=== PATIENT | male | born 1960 | race Hispanic/Latino ===

== ENCOUNTER 2018-08-13 21:26 | Inpatient (IN) | payer MEDICARE ==
[~2018-08-13 21:26] MED LIST: ISOVUE-370 76%-LOCM 1 ML ONE
[2018-08-13 21:59] LABS: #Basophils 0.2 thou/uL (0.0-0.2); #Eosinphils 0.1 thou/uL (0.0-0.7); #Lymphocytes 2.2 thou/uL (1.20-3.40); #Monocytes 0.6 thou/uL (0.11-0.59); #Neutrophils 4.7 thou/uL (1.40-6.50); %Eosinophils 1.9 % (0.0-10.0); %Lymphocytes 27.9 % (21.0-51.0); %Monocytes 7.6 % (0.0-10.0); %Neutrophils 60.6 % (42.0-75.0); Hemoglobin 15.7 g/dL (14.0-18.0); Mean Corpuscular HGB CONC 33.4 g/dL (32.0-36.0); Mean Corpuscular Hemoglobin 32.7 pg (27.0-31.0); Mean Corpuscular Volume 97.8 fL (78.0-98.0); Mean Platelet Volume 7.2 fL (7.4-10.4); Platelet Count 211 thou/uL (130-400); RBC Distribution Width 12.2 % (11.5-14.5); Red Blood Cell (RBC) Count 4.79 mill/uL (4.70-6.10); White Blood Cell (WBC) Count 7.8 thou/uL (4.8-10.8)
[2018-08-13 22:20] LABS: ALT (SGPT) 39 U/L (8-55); AST (SGOT) 31 U/L (5-34); Albumin 3.9 g/dL (3.5-5.0); Alkaline Phosphatase 75 U/L (40-150); Anion Gap 15 mmol/L (10-20); BUN (Urea Nitrogen) 15 mg/dL (8.4-25.7); Calc. Creatinine Clearance 0 mL/min (70-130); Calcium 9.8 mg/dL (7.8-10.44); Carbon Dioxide 25 mmol/L (22-29); Chloride 99 mmol/L (98-107); Estimated GFR-MDRD 77; Glucose 133 mg/dL (70-105); Potassium 3.9 mmol/L (3.5-5.1); Protein, Total 6.9 g/dL (6.0-8.3); Sodium 135 mmol/L (136-145)
--- NOTE | 2018-08-13 22:26 | RAD ---
Portable frontal chest radiograph: 08/13/2018 COMPARISON: 01/25/2011 HISTORY: Shortness of breath FINDINGS: There is prominence of the cardiac silhouette, which may signify magnification and/or cardi ac enlargement. No pneumothorax, pleural fluid, focal consolidation, or alveolar edema. IMPRESSION: Prominent cardiac silhouette with no focal consolidation or alveolar edema.
[2018-08-13 22:37] LABS: Troponin I Less than 0.010 ng/mL (< 0.028)
[2018-08-13] MEDS ORDERED: Lorazepam 2 MG/ML VIAL ONE (23:05)
--- NOTE | 2018-08-13 23:05 | CT ---
CT angiogram chest: 08/13/2018 COMPARISON: None HISTORY: Short of breath FINDINGS: Chest CT with IV contrast using CT angiogram protocol with coronal and sagittal 3-D reforma tted imaging obtained. No lymphadenopathy is noted. No pleural, pericardial, or mediastinal fluid. Evaluation for pulmonary embolism is suboptimal secondary to poor timing of the contrast bolus. Distal pulmonary emboli cannot be excluded. No evidence for a central pulmonary arterial embolism is seen. The lung parenchyma within the inferior posterior bilateral lower lobes is not fully imaged. The imag ed lung parenchyma demonstrates no acute findings. No acute osseous abnormality is seen. IMPRESSION: No evidence for a central pulmonary arterial embolism.
[2018-08-13 23:51] LABS: Acetaminophen Less than 6.0 mcg/mL (10.0-30.0); Alcohol Less than 10 mg/dL (Less than 10); CK (CPK) 388 U/L (30-200); Salicylate Less than 8.0 mg/dL (15.0-30.0)
[2018-08-14 00:25] LABS: Amphetamine Not Detected (NotDetected); Barbiturates Screen Not Detected (NotDetected); Benzodiazepine Screen Not Detected (NotDetected); Cocaine Metabolite Screen Not Detected (NotDetected); Medtox Control Line Valid? VALID (VALID); Medtox Reader # READER 1; Methadone Not Detected (NotDetected); Methamphetamine Not Detected (NotDetected); Opiate Screen Not Detected (NotDetected); Oxycodone Screen Not Detected (NotDetected); Phencyclidine (PCP) Not Detected (NotDetected); THC/Cannabinoid Screen Not Detected (NotDetected); Tricyclic Screen Not Detected (NotDetected)
[2018-08-14] MEDS ORDERED: methylPREDNISolone Sod Succ/PF 125 MG/2 ML VIAL ONE (01:25)
[2018-08-14] MEDS ORDERED: Albuterol Sulfate 2.5 mg/3 ml Neb ONE (01:36)
[2018-08-14] MEDS ORDERED: Acetaminophen 325 MG TAB PO PRN (02:40)
[2018-08-14] MEDS ORDERED: Ondansetron ODT 4 MG TAB SL PRN (02:40)
[2018-08-14] MEDS ORDERED: Ondansetron PF 4 MG/2 ML Vial IVP PRN (02:40)
[2018-08-14 06:07] VITALS: BMI 53.8
[2018-08-14] MEDS ORDERED: Dextrose 5% in Water 1,000 ML IV PRN (13:40)
[2018-08-14] MEDS ORDERED: Dextrose 50% Abboject 50 ML SYRINGE IVP PRN (13:40)
[2018-08-14] MEDS ORDERED: PROVENTIL INHALER 6.7 G (200 INHALATIONS) INH PRN (13:43)
[2018-08-14] MEDS ORDERED: hydrOXYzine 25 MG TAB PO PRN (13:48)
[2018-08-14] MEDS ORDERED: Guaifenesin DM 100-10/5 ML UDCUP PO PRN (13:52)
[2018-08-14] MEDS ORDERED: traMADol HCl 50 MG TAB PO PRN (13:56)
[2018-08-14] MEDS ORDERED: Nitroglycerin 0.4 MG TAB (25 Tab Bottle) SL SCH (14:00)
[2018-08-14] MEDS ORDERED: Azithromycin 500 MG in Sodium Chloride 0.9% 250 ML 250 ML IVPB SCH (14:00)
[2018-08-14] MEDS ORDERED: Metoprolol Tartrate 50 MG TAB PO SCH (14:15)
[2018-08-14] MEDS ORDERED: Losartan 25 MG TAB PO SCH (14:15)
[2018-08-14] MEDS: ALPRAZolam 0.5 MG TAB PO PRN (14:19)
[2018-08-14] MEDS ORDERED: Bacteriostatic Water 30 ML VIAL FS PRN ×2 (14:21→14:30)
[2018-08-14] MEDS ORDERED: cefTRIAXone\\ROCEPHIN 1 GM in Sodium Chloride 0.9% 100 ML IVPB SCH (15:00)
--- NOTE | 2018-08-14 15:56 | HP ---
CHIEF COMPLAINT: Shortness of breath for the last 3-4 days. HISTORY OF PRESENT ILLNESS: He is a 57-year-old man with history of hypertension, diabetes, obstructive sleep apnea, has been having some shortness of breath over the last 3 days. He has been to ED x2 for the past 3 days, was sent home. At home, he could not breathe with cough and productive sputum and with chest heaviness, he decided to come to the ER. When came to ER, he was hypoxic and was given nebulized treatment and put on oxygen 3 L per nasal cannula. He improved, but continued to have some shortness of breath. 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 MEDICATIONS: He takes at home: 1. Cozaar 50 mg daily. 2. Metoprolol 25 mg daily. 3. Tramadol 50 mg q.6 hourly. 4. Glyburide 5 mg b.i.d. PAST MEDICAL HISTORY: Sleep apnea, kidney stones, diabetes, hypertension. PAST SURGICAL HISTORY: Left leg surgery, lithotripsy. SOCIAL HISTORY: He drinks socially every week. Denies alcohol or drug use. No smoking history. PSYCHIATRIC HISTORY: No previous psychiatric history. ALLERGIES: NO KNOWN DRUG ALLERGY. WHEN HE CAME TO ER, HIS VITAL SIGNS WERE BLOOD PRESSURE 186/123, PULSE 90, RESPIRATIONS 16, TEMPERATURE 99.4. IN THE ER, HE WAS GIVEN 3 NEBULIZED TREATMENTS, IV STEROIDS. CTA CHEST DONE, CAME BACK NEGATIVE, NO PE. FAMILY HISTORY: Reviewed and not pertinent to current illness. REVIEW OF SYSTEMS: GENERAL: Confusion. Denies any malaise. No fever. No chills. EYES: Denies any eye pain. No discharge. ENT: Denies any dysphagia, throat swelling or epistaxis. CARDIOVASCULAR: Denies any chest pain. Does have some chest tightness. Does have shortness of breath. No pain. No orthopnea. RESPIRATORY: He has some cough and wheezing. GI: Denies any nausea, vomiting, constipation, or diarrhea. GENITOURINARY: Denies any dysuria or any discharge from the penis. MUSCULOSKELETAL: Denies any joint pain. SKIN: No rash. NEUROLOGICAL: Denies any dizziness or headache. ENDOCRINE: Denies any heat intolerance. PHYSICAL EXAMINATION: GENERAL: This is an elderly man, morbidly obese, not in distress. VITAL SIGNS: Pulse 88, blood pressure 129/83, respirations 18, temperature 98.7, and on 3 L oxygen nasal cannula. HEENT: Head is atraumatic, normocephalic. Pupils are round, reactive. Ears, nose, and throat normal. Tongue, mucosa moist. NECK: Supple. No JVD. No thyromegaly. CHEST: Has diminished breath sounds at bases. Bilateral expiratory wheezing noted. No coarse crackles. No rhonchi. CVS: S1, S2 audible. No S3, S4. No murmur. ABDOMEN: Soft, distended. Bowel sounds audible. No organomegaly. No guarding. No rigidity. EXTREMITIES: No pedal edema. No cyanosis, no clubbing. 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 No focal deficit. SKIN: Normal turgor. Warm and dry. No rash. PSYCHIATRIC: Normal behavior. Affect, normal. LABORATORY DATA: Lab shows WBC 7.8, hemoglobin 15.7, hematocrit 47, platelets 211. Sodium 135, potassium 3.9, chloride 99, bicarbonate 25, glucose 133. AST 31, ALT 39, alkaline phosphatase 75, creatine kinase 388. Troponin less than 0.012. Serum total protein 6.9, albumin 3.9. Urine toxicology came back negative. IMAGING STUDIES: CTA chest came back negative, no PE. ASSESSMENT/PLAN: A 57-year-old man who is morbidly obese with history of sleep apnea, presented with shortness of breath for a 3-day duration with obstructive sleep apnea. 1. Hypoxia, possible chronic obstructive pulmonary disease versus asthma. IV Solu-Medrol 80 mg oxygen nebulizer, IV Rocephin, Zithromax empirically. 2. Obstructive sleep apnea. We will try CPAP and BiPAP at night, and we will follow him closely. Pulmonology will be consulted. 3. Deep vein thrombosis prophylaxis will be Lovenox. Job ID: [id number]
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
[2018-08-14] MEDS: Potassium Chloride 10 MEQ TAB PO SCH (17:15)
[2018-08-14] MEDS ORDERED: methylPREDNISolone Sod Succ/PF 125 MG/2 ML VIAL IVP SCH (18:00)
[2018-08-14] MEDS: Mometasone/Formoterol 120 PUFF INHALER INH SCH (18:52)
[2018-08-14] MEDS: Famotidine 20 MG TAB PO SCH (20:29)
[2018-08-14] MEDS: Furosemide 40 MG TAB PO SCH (20:29)
[2018-08-14] MEDS ORDERED: methylPREDNISolone Sod Succ 40 MG VIAL IVP SCH (21:00)
[2018-08-14] MEDS: HumaLOG 300 UNITS/3 ML VIAL SC PRN (21:37)
[2018-08-15] MEDS ORDERED: Cepastat Lozenges 1 LOZ PO PRN (00:22)
[2018-08-15] MEDS: ALPRAZolam 0.5 MG TAB PO PRN ×2 (01:58→17:50)
[2018-08-15] MEDS ORDERED: Nitroglycerin 0.4 MG TAB (25 Tab Bottle) SL SCH (02:30)
[2018-08-15 03:03] LABS: #Lymphocytes 1.3 thou/uL (1.20-3.40); #Monocytes 0.2 thou/uL (0.11-0.59); #Neutrophils 10.1 thou/uL (1.40-6.50); %Basophils 0.4 % (0.0-1.0); %Eosinophils 0.2 % (0.0-10.0); %Lymphocytes 11.1 % (21.0-51.0); %Neutrophils 86.3 % (42.0-75.0); Hemoglobin 15.4 g/dL (14.0-18.0); Mean Corpuscular HGB CONC 32.6 g/dL (32.0-36.0); Mean Corpuscular Hemoglobin 32.1 pg (27.0-31.0); Mean Corpuscular Volume 98.6 fL (78.0-98.0); Mean Platelet Volume 7.7 fL (7.4-10.4); Platelet Count 229 thou/uL (130-400); RBC Distribution Width 12.2 % (11.5-14.5); Red Blood Cell (RBC) Count 4.79 mill/uL (4.70-6.10); White Blood Cell (WBC) Count 11.7 thou/uL (4.8-10.8)
[2018-08-15 03:38] LABS: Anion Gap 13 mmol/L (10-20); BUN (Urea Nitrogen) 17 mg/dL (8.4-25.7); Calc. Creatinine Clearance 159 mL/min (70-130); Calcium 9.6 mg/dL (7.8-10.44); Carbon Dioxide 28 mmol/L (22-29); Chloride 101 mmol/L (98-107); Estimated GFR-MDRD 64; Glucose 307 mg/dL (70-105); Potassium 5.5 mmol/L (3.5-5.1); Sodium 136 mmol/L (136-145)
[2018-08-15] MEDS: HumaLOG 300 UNITS/3 ML VIAL SC PRN (06:00)
[2018-08-15] MEDS: glipiZIDE 5 MG TAB PO SCH (06:49)
[2018-08-15] MEDS: Mometasone/Formoterol 120 PUFF INHALER INH SCH ×2 (07:19→18:56)
[2018-08-15] MEDS ORDERED: Enoxaparin Sodium 40 MG/0.4 ML SYRINGE SC SCH (09:00)
[2018-08-15] MEDS ORDERED: Losartan 25 MG TAB PO SCH (09:00)
--- NOTE | 2018-08-15 09:32 | PRG ---
DATE OF SERVICE: 08/15/2018 SUBJECTIVE: This morning, the patient weak. He is still coughing and wheezing. Clearly, he is in no distress. OBJECTIVE: VITAL SIGNS: Saturations are 94% on 2 L, temperature 97, pulse 90, blood pressure 148/76. CHEST: Decreased breath sounds. No wheezing. CARDIAC: Normal S1, S2. No gallops. ABDOMEN: No masses. ASSESSMENT AND PLAN: Asthma, bronchitis, morbidly obese, diabetes, severe deconditioning, sleep apnea. No reason to suspect any pneumonia. There is no evidence of pulmonary emboli. Switch over to p.o. antibiotics, p.o. steroids. Hopefully, could be discharged home in the next 24 to 48 hours. Job ID: [id number]
[2018-08-15] MEDS: Aspirin Chewable 81 MG TAB PO SCH (09:36)
[2018-08-15] MEDS: Metoprolol Tartrate 50 MG TAB PO SCH (09:36)
[2018-08-15] MEDS: Famotidine 20 MG TAB PO SCH ×2 (09:37→20:20)
[2018-08-15] MEDS: Furosemide 40 MG TAB PO SCH ×2 (09:37→20:20)
[2018-08-15] MEDS: Potassium Chloride 10 MEQ TAB PO SCH ×2 (09:37→17:49)
[2018-08-15] MEDS: Allopurinol 300 MG TAB PO SCH (09:38)
[2018-08-15] MEDS: Benzonatate 100 MG CAP PO SCH ×3 (09:43→20:20)
[2018-08-15] MEDS: HYDROcodone/Acetaminophen 5/325 mg Tablet PO PRN ×2 (10:14→17:50)
[2018-08-15] MEDS: Doxycycline 100 MG CAP PO SCH ×2 (10:45→20:20)
--- NOTE | 2018-08-15 11:21 | PRG ---
DATE OF SERVICE: 08/15/2018 SUBJECTIVE: The patient says he is feeling substantially better. Still has some cough. Still has some sputum. Still feels some tightness in his central chest, but overall feels like the treatment plan is working well. The patient reports he typically takes metformin, has not been started back on that just yet. OBJECTIVE: VITAL SIGNS: Temperature is 97.8, pulse 90, respirations 16, O2 sat 94% on 2 L, and blood pressure 148/76. GENERAL APPEARANCE: Morbidly obese, age-appropriate male, in no distress. HEENT: Has mild pharyngeal erythema with some postpharyngeal drainage that is slightly cream colored. LUNGS: Clear to auscultation bilaterally. HEART: Regular rate and rhythm. ABDOMEN: Soft and nontender, with normal bowel sounds. EXTREMITIES: The patient has 2+ pitting edema bilaterally with some chronic stasis dermatitis. LABORATORY DATA: White count 11.7, hemoglobin 15.4, and platelets 229. Sodium 136, potassium 5.5, BUN 17, creatinine is 1.17, and glucose from 161 to 307. Troponin less than 0.01. Strep culture negative. IMPRESSION AND PLAN: 1. Asthma exacerbation with bronchitis. Continue nebulizer, steroids, oxygen, and p.o. doxycycline. 2. Peripheral edema, appears to be chronic. 3. Diabetes, poorly controlled with use of the steroids and being off his metformin because of the CT scan. It has been adequate time, we will resume his metformin. He has also been switched over to p.o. steroids. Hopefully, we will not be able to get better control there. 4. Some posterior nasal drainage, possibly consistent with sinusitis. He is on p.o. doxycycline. We will need to reexamine that tomorrow to consider possible longer-term outpatient oral antibiotic regimen. 5. Obstructive sleep apnea. The patient is set up for an outpatient sleep study. Job ID: [id number]
[2018-08-15] MEDS: Guaifenesin DM 100-10/5 ML UDCUP PO SCH ×3 (11:29→23:56)
[2018-08-15] MEDS ORDERED: metFORMIN 500 MG TAB PO SCH (11:30)
[2018-08-15] MEDS: metFORMIN 500 MG TAB PO SCH (17:49)
[2018-08-15] MEDS: Zolpidem Tartrate 5 MG TAB PO PRN (20:20)
[2018-08-16] MEDS: HYDROcodone/Acetaminophen 5/325 mg Tablet PO PRN ×3 (02:02→18:29)
[2018-08-16] MEDS: Guaifenesin DM 100-10/5 ML UDCUP PO SCH ×2 (06:10→11:46)
[2018-08-16] MEDS: glipiZIDE 5 MG TAB PO SCH (06:13)
[2018-08-16] MEDS: Mometasone/Formoterol 120 PUFF INHALER INH SCH ×2 (06:27→18:39)
[2018-08-16 08:11] LABS: Anion Gap 15 mmol/L (10-20); BUN (Urea Nitrogen) 17 mg/dL (8.4-25.7); Calc. Creatinine Clearance 168 mL/min (70-130); Calcium 9.6 mg/dL (7.8-10.44); Carbon Dioxide 28 mmol/L (22-29); Chloride 100 mmol/L (98-107); Estimated GFR-MDRD 68; Glucose 143 mg/dL (70-105); Magnesium 1.9 mg/dL (1.6-2.6); Sodium 139 mmol/L (136-145)
[2018-08-16] MEDS: Metoprolol Tartrate 50 MG TAB PO SCH (09:00)
[2018-08-16] MEDS: Furosemide 40 MG TAB PO SCH ×2 (09:00→20:15)
[2018-08-16] MEDS: Allopurinol 300 MG TAB PO SCH (09:00)
[2018-08-16] MEDS: predniSONE 20 MG TAB PO SCH (09:00)
[2018-08-16] MEDS: metFORMIN 500 MG TAB PO SCH ×2 (09:01→18:29)
[2018-08-16] MEDS: Aspirin Chewable 81 MG TAB PO SCH (09:01)
[2018-08-16] MEDS: Doxycycline 100 MG CAP PO SCH ×2 (09:03→20:14)
[2018-08-16] MEDS: Benzonatate 100 MG CAP PO SCH ×3 (09:03→20:14)
[2018-08-16] MEDS: Famotidine 20 MG TAB PO SCH ×2 (09:03→20:14)
--- NOTE | 2018-08-16 09:49 | PRG ---
DATE OF SERVICE: 08/16/2018 Temperature 97, pulse 93, respiratory rate 24, blood pressure 140/87, sats are 97% on room air. He is still having difficulty breathing. Clearly, he has anxiety. CHEST: Decreased breath sounds. No wheezing. CARDIAC: Normal S1, S2. ABDOMEN: No masses. IMPRESSION: 1. Morbid obesity. 2. Bronchitis. 3. Sleep apnea. 4. History of asthma. PLAN: The patient is stable to be discharged home. Follow up with his physicians at [facility]. Job ID: [id number]
[2018-08-16] MEDS: ALPRAZolam 0.5 MG TAB PO PRN (11:46)
--- NOTE | 2018-08-16 18:21 | PRG ---
DATE OF SERVICE: 08/16/2018 SUBJECTIVE: The patient is symptomatically feels better, however, gets short of breath on minimal exertion. He denies any chest pain. He has intermittent wheezing. He has cough, which is essentially nonproductive. He denies any fever or chills. REVIEW OF SYSTEMS: No chest pain, nausea, vomiting, or diarrhea. All other review of systems were reviewed and were found negative. PHYSICAL EXAMINATION: VITAL SIGNS: Temperature 97.6, pulse rate of 93, O2 saturation 93% on 2 L nasal cannula, respiration of 24 earlier, now is 16, blood pressure of 141/87. GENERAL: A 57-year-old male in mild respiratory distress on minimal exertion. HEENT: Head, atraumatic and normocephalic. Sclerae anicteric. Moist mucous membranes. No oral lesion. NECK: Supple. No JVD. LUNGS: Showed expiratory wheezing with diminished air entry at bilateral bases. No rhonchi. HEART: S1 and S2 present. Regular rate and rhythm. ABDOMEN: Soft, obese. Bowel sounds present. EXTREMITIES: No edema or calf tenderness. NEUROLOGY: Grossly nonfocal. MEDICATIONS: Reviewed. The patient is currently on, 1. Doxycycline. 2. Glipizide. 3. Prednisone. 4. Metformin. LABORATORY FINDINGS: WBC 11.7 with hemoglobin 15.4, hematocrit 47.2, and platelets 229. BUN 17, creatinine 1.1, magnesium 1.9. Urine drug screen was negative. His strep throat testing negative. CT angiogram of the chest was negative for pulmonary embolism. IMPRESSION: 1. Acute hypoxic respiratory failure due to Acute asthmatic bronchitis. 2. Diabetes mellitus, type 2. 3. Morbid obesity with a BMI of 53.9. 4. Chronic kidney disease, stage 2. 5. Hyperkalemia with potassium of 5.5. Repeat potassium today was 4.0. 6. Obstructive sleep apnea, not on CPAP. 7. Hypertension. 8. Chronic pain syndrome. 9. Gout. 10. History of mild intermittent asthma. PLAN: The patient will continue O2 supplementation, nebulizer treatment, antibiotics, and steroids. We will wean off oxygen. The patient will probably be discharged later today or in a.m. once he is on room air. We will continue doxycycline. We will add Mucinex. We will hold potassium supplementation. We will resume Cozaar in a.m. since potassium is normal today. Plan of care was discussed with the patient. He stated understanding. Job ID: [id number] MTDD
[2018-08-16] MEDS: HumaLOG 300 UNITS/3 ML VIAL SC PRN ×2 (18:30→22:00)
[2018-08-16] MEDS ORDERED: Polyethylene Glycol 3350 17 GM Packet PO PRN (18:39)
[2018-08-16] MEDS: guaiFENesin ER 600 MG TAB PO SCH (20:14)
[2018-08-16] MEDS: Zolpidem Tartrate 5 MG TAB PO PRN (20:14)
[2018-08-16] MEDS: Senokot S 8.6-50 MG TAB PO SCH (20:14)
[2018-08-17] MEDS: ALPRAZolam 0.5 MG TAB PO PRN (00:10)
[2018-08-17 05:28] LABS: Anion Gap 13 mmol/L (10-20); BUN (Urea Nitrogen) 18 mg/dL (8.4-25.7); Calc. Creatinine Clearance 181 mL/min (70-130); Calcium 9.6 mg/dL (7.8-10.44); Carbon Dioxide 29 mmol/L (22-29); Chloride 99 mmol/L (98-107); Estimated GFR-MDRD 74; Glucose 127 mg/dL (70-105); Potassium 3.8 mmol/L (3.5-5.1); Sodium 137 mmol/L (136-145)
[2018-08-17] MEDS: Mometasone/Formoterol 120 PUFF INHALER INH SCH (06:21)
[2018-08-17] MEDS: glipiZIDE 5 MG TAB PO SCH (06:35)
--- NOTE | 2018-08-17 07:09 | EKG ---
Test Reason : Blood Pressure : / mmHG Vent. Rate : 098 BPM Atrial Rate : 098 BPM P-R Int : 156 ms QRS Dur : 104 ms QT Int : 366 ms P-R-T Axes : 053 055 003 degrees QTc Int : 467 ms Normal sinus rhythm Normal ECG When compared with ECG of 13-AUG-2018 21:48, (Unconfirmed) No significant change was found Confirmed by BREONNA COLLAZO ([id number]) on 08/17/2018 7:09:01 AM Referred By: FERNANDO Confirmed By:BREONNA COLLAZO
[2018-08-17] MEDS: Famotidine 20 MG TAB PO SCH (07:49)
[2018-08-17] MEDS: predniSONE 20 MG TAB PO SCH (07:50)
[2018-08-17] MEDS: Benzonatate 100 MG CAP PO SCH (07:50)
[2018-08-17] MEDS: Allopurinol 300 MG TAB PO SCH (07:50)
[2018-08-17] MEDS: metFORMIN 500 MG TAB PO SCH (07:50)
[2018-08-17] MEDS: Aspirin Chewable 81 MG TAB PO SCH (07:50)
[2018-08-17] MEDS: guaiFENesin ER 600 MG TAB PO SCH (07:50)
[2018-08-17] MEDS: Senokot S 8.6-50 MG TAB PO SCH (07:51)
[2018-08-17] MEDS: Metoprolol Tartrate 50 MG TAB PO SCH (07:51)
[2018-08-17] MEDS: Furosemide 40 MG TAB PO SCH (07:51)
[2018-08-17] MEDS: HYDROcodone/Acetaminophen 5/325 mg Tablet PO PRN (07:54)
[2018-08-17] MEDS: Doxycycline 100 MG CAP PO SCH (07:55)
[2018-08-17] MEDS ORDERED: predniSONE 20 MG TAB PO SCH ×2 (08:45→09:00)
--- NOTE | 2018-08-17 09:23 | PRG ---
DATE OF SERVICE: 08/17/2018 SUBJECTIVE: Morbidly obese gentleman, 365 pounds, much better, less short of breath, less coughing. OBJECTIVE: VITAL SIGNS: Saturations are 97% on room air, respirations 16, pulse is 84, blood pressure 120/80. CHEST: No wheezing or crackles. CARDIAC: Normal S1, S2. No gallop. ABDOMEN: No masses. IMPRESSION: 1. Asthma, morbid obesity, severe deconditioning. 2. Probable sleep apnea, bronchitis. He can be discharged home today. Follow up with his doctor at [facility]. I would taper his prednisone over a week. Antibiotics for a week. Job ID: [id number]
[2018-08-17 11:37] VITALS: BP 179/83; TEMP 98.2
--- NOTE | 2018-08-17 16:58 | DIS ---
DATE OF ADMISSION: 08/15/2018 DATE OF DISCHARGE: 08/17/2018 DISCHARGE DISPOSITION: Home. FOLLOWUP: 1. Follow up with primary care physician, Dr. Herbert Chandler in 1 week. 2. Follow up with assistant to the director at [facility]. ALLERGIES: NO KNOWN DRUG ALLERGIES. THE PATIENT WAS SEEN AND EXAMINED ON THE DAY OF DISCHARGE. DENIES ANY NEW COMPLAINTS. SHORTNESS OF BREATH AND WHEEZING HAVE SIGNIFICANTLY IMPROVED. A SLEEP STUDY OUTPATIENT IS RECOMMENDED. PRIMARY CARE PHYSICIAN ADVISED TO FOLLOW. DISCHARGE MEDICATIONS: 1. Mucinex 600 mg twice a day for 1 week. 2. Albuterol inhaler as needed. 3. Dulera 200/5 two puffs b.i.d. 4. Prednisone taper 20 mg daily for next three days. 5. All other home medications were left unchanged. 6. Doxycycline 100 mg b.i.d. for 1 week. ALLERGIES: NO KNOWN DRUG ALLERGIES. INPATIENT JUDGE: Pulmonary, Dr. Mckeon. BRIEF HOSPITAL COURSE: The patient is a 57-year-old male with obstructive sleep apnea; hypertension; diabetes mellitus, type 2; and asthma; presented to the hospital with worsening shortness of breath along with wheezing. His workup was consistent with acute hypoxic respiratory failure. CT angiogram of the chest done in the emergency room was negative for pulmonary embolism. He showed good improvement on steroids as well as oral antibiotics. Streptococcus screen was negative. The patient was evaluated by Pulmonary, Dr. Mckeon, who has cleared the patient for discharge. A sleep study as outpatient is recommended. Lifestyle modification was emphasized. FINAL DIAGNOSES: 1. Acute hypoxic respiratory failure secondary to asthmatic bronchitis. 2. Diabetes mellitus, type 2. 3. Morbid obesity with BMI of 53.9. 4. Chronic kidney disease, stage 2. 5. Hyperkalemia, resolved. 6. Obstructive sleep apnea, sleep study is pending as outpatient. 7. Hypertension. 8. Chronic pain syndrome. 9. Gout. 10. History of mild intermittent asthma. Job ID: [id number]
[2018-08-18] MEDS ORDERED: predniSONE 20 MG TAB PO SCH (08:00)
== END 2018-08-17 14:00 | disposition home or self-care (01) | DRG 189 ==
LOC: ERS 21:26 → SJJU 08-14 02:43 → OBSVTOIN 08-15 10:43
PROVIDERS: ADMIT Internal Medicine; ATTEND Internal Medicine
DX: J96.01 Acute respiratory failure with hypoxia (principal); Z68.43 Body mass index [BMI] 50.0-59.9, adult; J45.21 Mild intermittent asthma with (acute) exacerbation; G47.33 Obstructive sleep apnea (adult) (pediatric); E66.01 Morbid (severe) obesity due to excess calories; E11.22 Type 2 diabetes mellitus with diabetic chronic kidney disease; E11.65 Type 2 diabetes mellitus with hyperglycemia; N18.2 Chronic kidney disease, stage 2 (mild); I12.9 Hypertensive chronic kidney disease with stage 1 through stage 4 chronic kidney disease, or unspecified chronic kidney disease; E87.6 Hypokalemia; M10.9 Gout, unspecified; G89.4 Chronic pain syndrome; Z79.84 Long term (current) use of oral hypoglycemic drugs; Z79.899 Other long term (current) drug therapy
CPT/HCPCS: 36415; 36416; 71045; 71275; 80048; 80053; 80306; 80307; 82550; 83735; 83880; 84484; 85025; 87081; 87430; 93005; 93010; 94640; 94760; 96372; 96374; J0456; J0696; J1650; J2060; J2920; J2930; J3490; J7050; J7512; J7611; J7620; Q9966

== ENCOUNTER 2018-10-14 17:57 | Emergency (ER) | payer MEDICARE ==
[2018-10-14] MEDS ORDERED: Ketorolac Tromethamine 30 MG/ML VIAL ONE (19:13)
[2018-10-14] MEDS ORDERED: Ondansetron PF 4 MG/2 ML Vial ONE (19:13)
[2018-10-14 19:26] LABS: #Eosinphils 0.3 thou/uL (0.0-0.7); #Lymphocytes 2.3 thou/uL (1.20-3.40); #Monocytes 0.7 thou/uL (0.11-0.59); %Basophils 0.2 % (0.0-1.0); %Lymphocytes 32.1 % (21.0-51.0); %Monocytes 9.1 % (0.0-10.0); %Neutrophils 54.5 % (42.0-75.0); Hemoglobin 15.7 g/dL (14.0-18.0); Mean Corpuscular Hemoglobin 33.2 pg (27.0-31.0); Mean Corpuscular Volume 97.8 fL (78.0-98.0); Mean Platelet Volume 7.7 fL (7.4-10.4); Platelet Count 240 thou/uL (130-400); Red Blood Cell (RBC) Count 4.73 mill/uL (4.70-6.10); White Blood Cell (WBC) Count 7.3 thou/uL (4.8-10.8)
[2018-10-14 19:48] LABS: ALT (SGPT) 45 U/L (8-55); AST (SGOT) 33 U/L (5-34); Albumin 3.9 g/dL (3.5-5.0); Alkaline Phosphatase 67 U/L (40-150); Anion Gap 13 mmol/L (10-20); BUN (Urea Nitrogen) 19 mg/dL (8.4-25.7); Bilirubin, Total 0.5 mg/dL (0.2-1.2); CK (CPK) 92 U/L (30-200); Calc. Creatinine Clearance 0 mL/min (70-130); Calcium 9.4 mg/dL (7.8-10.44); Carbon Dioxide 27 mmol/L (22-29); Chloride 104 mmol/L (98-107); Estimated GFR-MDRD 64; Globulin 3.1 g/dL (2.4-3.5); Glucose 91 mg/dL (70-105); Potassium 4.7 mmol/L (3.5-5.1); Sodium 139 mmol/L (136-145)
--- NOTE | 2018-10-14 19:48 | CT ---
CT Stone Protocol History: Flank pain. History of kidney stones. Comparison: None. Findings: Lung bases are clear. No pericardial effusion. Bilateral nonobstructive renal calculi. There is a 4 mm calculus interpolar left kidney. Clustered 2 to 3 mm calculi present within the inferior pole right kidney. Multiple sub-4 mm calculi present within the right interpolar and inferior collecting system. No hydroureteronephrosis. No perinephric or periureteral stranding. No dilated loops of large or small bowel. The appendix is visualized and is normal. Spleen, liver, pa ncreas are unremarkable. No free intraperitoneal gas or fluid. Mild degenerative disease of the lumbar spine. Small fat-contai valentina umbilical hernia. Impression: 1. Nonobstructive bilateral renal calculi. No hydroureteronephrosis or secondary evidence of a recent ly passed stone. 2. No acute inflammatory process within the abdomen or pelvis.
[2018-10-14 21:55] LABS: Bilirubin Negative (Negative); Blood, Urine Negative (Negative); Clarity CLEAR (Clear); Glucose, Urine (Dipstick) Negative (Negative); Leukocyte Negative (Negative); Nitrite Negative (Negative); Protein, Urine (Dipstick) Negative (Neg-Trace); Specific Gravity, Urine 1.024 (1.002-1.036); pH, Urine 5.5 (5.0-9.0)
== END 2018-10-14 22:50 | disposition home or self-care (01) ==
LOC: ERS 17:57
DX: M54.5 Low back pain (principal); E11.9 Type 2 diabetes mellitus without complications; I10 Essential (primary) hypertension; G47.30 Sleep apnea, unspecified; F41.9 Anxiety disorder, unspecified; Z79.82 Long term (current) use of aspirin; Z79.899 Other long term (current) drug therapy; Z79.84 Long term (current) use of oral hypoglycemic drugs; Z79.51 Long term (current) use of inhaled steroids; Z87.442 Personal history of urinary calculi
CPT/HCPCS: 74176; 80053; 81003; 82550; 85025; 87086; 96361; 96374; 96375; J1885; J2405

== ENCOUNTER 2020-06-22 12:24 | Emergency (ER) | payer MEDICARE | END 2020-06-22 13:16 | disposition left against medical advice (07) | LOC: ERS 12:24 | DX: Z53.21 Procedure and treatment not carried out due to patient leaving prior to being seen by health care provider (principal) ==

== ENCOUNTER 2020-06-28 04:26 | Emergency (ER) | payer MEDICARE ==
[2020-06-28 05:23] LABS: #Basophils 0.1 thou/uL (0.0-0.2); #Eosinphils 0.1 thou/uL (0.0-0.7); #Monocytes 0.8 thou/uL (0.11-0.59); #Neutrophils 6.6 thou/uL (1.40-6.50); %Basophils 0.5 % (0.0-1.0); %Eosinophils 0.6 % (0.0-10.0); %Lymphocytes 34.8 % (21.0-51.0); %Neutrophils 57.1 % (42.0-75.0); Hemoglobin 16.4 g/dL (14.0-18.0); Mean Corpuscular HGB CONC 32.2 g/dL (32.0-36.0); Mean Corpuscular Hemoglobin 31.4 pg (27.0-31.0); Mean Corpuscular Volume 97.7 fL (78.0-98.0); Mean Platelet Volume 7.7 fL (7.4-10.4); Platelet Count 255 thou/uL (130-400); RBC Distribution Width 12.6 % (11.5-14.5); Red Blood Cell (RBC) Count 5.21 mill/uL (4.70-6.10); White Blood Cell (WBC) Count 11.5 thou/uL (4.8-10.8)
[2020-06-28 05:44] LABS: ALT (SGPT) 45 U/L (8-55); AST (SGOT) 17 U/L (5-34); Albumin 4.1 g/dL (3.4-4.8); Alkaline Phosphatase 85 U/L (40-110); Anion Gap 16 mmol/L (10-20); BUN (Urea Nitrogen) 24 mg/dL (8.4-25.7); Bilirubin, Total 0.6 mg/dL (0.2-1.2); CK (CPK) 70 U/L (30-200); Calc. Creatinine Clearance 0 mL/min (70-130); Calcium 8.7 mg/dL (7.8-10.44); Carbon Dioxide 28 mmol/L (23-31); Chloride 99 mmol/L (98-107); Globulin 3.1 g/dL (2.4-3.5); Glucose 203 mg/dL (80-115); Potassium 3.8 mmol/L (3.5-5.1); Protein, Total 7.2 g/dL (5.8-8.1); Sodium 139 mmol/L (136-145)
== END 2020-06-28 06:17 | disposition home or self-care (01) ==
LOC: ERS 04:26
DX: J06.9 Acute upper respiratory infection, unspecified (principal); I10 Essential (primary) hypertension; E11.9 Type 2 diabetes mellitus without complications; E03.9 Hypothyroidism, unspecified; G47.30 Sleep apnea, unspecified; Z86.16 Personal history of COVID-19
CPT/HCPCS: 71045; 80053; 82550; 83880; 84484; 85025; 93005

== ENCOUNTER 2021-11-05 10:31 | Observation (INO) | payer MEDICARE, OTHER ==
[2021-11-05 11:04] LABS: #Eosinphils 0.1 thou/uL (0.0-0.7); #Lymphocytes 2.6 thou/uL (1.20-3.40); #Monocytes 0.6 thou/uL (0.11-0.59); #Neutrophils 3.8 thou/uL (1.40-6.50); %Basophils 0.5 % (0.0-1.0); %Eosinophils 1.5 % (0.0-10.0); %Lymphocytes 36.4 % (21.0-51.0); %Monocytes 8.3 % (0.0-10.0); %Neutrophils 53.2 % (42.0-75.0); Hemoglobin 15.2 g/dL (14.0-18.0); Mean Corpuscular HGB CONC 33.2 g/dL (32.0-36.0); Mean Corpuscular Hemoglobin 32.4 pg (27.0-31.0); Mean Corpuscular Volume 97.5 fL (78.0-98.0); Mean Platelet Volume 7.5 fL (7.4-10.4); Platelet Count 212 thou/uL (130-400); White Blood Cell (WBC) Count 7.2 thou/uL (4.8-10.8)
[2021-11-05 11:27] LABS: ALT (SGPT) 69 U/L (8-55); AST (SGOT) 49 U/L (5-34); Alkaline Phosphatase 82 U/L (40-110); Anion Gap 15 mmol/L (10-20); BUN (Urea Nitrogen) 12 mg/dL (8.4-25.7); Calc. Creatinine Clearance 0 mL/min (70-130); Calcium 9.2 mg/dL (7.8-10.44); Carbon Dioxide 24 mmol/L (23-31); Chloride 101 mmol/L (98-107); Estimated GFR 79; Globulin 2.7 g/dL (2.4-3.5); Glucose 149 mg/dL (80-115); Lipase 22 U/L (8-78); Potassium 3.7 mmol/L (3.5-5.1); Protein, Total 6.7 g/dL (5.8-8.1); Sodium 136 mmol/L (136-145)
[2021-11-05] MEDS ORDERED: Aspirin Chewable 81 MG TAB ONE (12:33)
[2021-11-05] MEDS ORDERED: Acetaminophen 325 MG TAB PO PRN (14:00)
[2021-11-05] MEDS ORDERED: Acetaminophen 650 MG Suppository PR PRN (14:00)
[2021-11-05] MEDS ORDERED: Guaifenesin DM 100-10/5 ML UDCUP PO PRN (14:00)
[2021-11-05] MEDS ORDERED: Ondansetron PF 4 MG/2 ML Vial IVP PRN (14:00)
[2021-11-05] MEDS ORDERED: Ondansetron ODT 4 MG TAB PO PRN (14:00)
[2021-11-05] MEDS ORDERED: predniSONE 20 MG TAB PO SCH ×2 (14:15→14:30)
[2021-11-05 14:27] LABS: SARS-CoV-2 NAA Rapid Test Not Detected (NotDetected)
[2021-11-05 14:33] LABS: Magnesium 1.8 mg/dL (1.6-2.6)
[2021-11-05 15:04] LABS: Bilirubin Negative (Negative); Blood, Urine Negative (Negative); Clarity Clear (Clear); Glucose, Urine (Dipstick) Normal (Negative); Ketone, Urine Negative (Negative); Leukocyte Negative Leu/uL (Negative); Nitrite Negative (Negative); Protein, Urine (Dipstick) Negative (Neg-Trace); Specific Gravity, Urine 1.003 (1.002-1.036); Urobilinogen Normal mg/dL (Less than 2)
[2021-11-05 16:26] LABS: Legionella Urinary Ag Negative (Negative); Strep pneumo Urine Ag NEGATIVE (NEGATIVE)
[2021-11-05 16:40] VITALS: BMI 50.2
[2021-11-05] MEDS ORDERED: Fluticasone Propionate Nasal Spray 16 gm Bottle NASAL PRN (20:00)
[2021-11-05] MEDS: Doxycycline 100 MG CAP PO SCH (20:23)
[2021-11-05] MEDS ORDERED: guaiFENesin/DM ER PO SCH (21:00)
[2021-11-05] MEDS ORDERED: hydrOXYzine 25 MG TAB PO SCH (23:59)
[2021-11-06 05:05] LABS: Anion Gap 15 mmol/L (10-20); BUN (Urea Nitrogen) 12 mg/dL (8.4-25.7); Calc. Creatinine Clearance 161 mL/min (70-130); Calcium 9.1 mg/dL (7.8-10.44); Carbon Dioxide 23 mmol/L (23-31); Chloride 103 mmol/L (98-107); Estimated GFR 81; Glucose 213 mg/dL (80-115); Potassium 4.1 mmol/L (3.5-5.1); Sodium 137 mmol/L (136-145)
[2021-11-06 06:15] LABS: Band 6 % (5-11); Hemoglobin 14.5 g/dL (14.0-18.0); Lymphocytes 20 % (21-51); MDiff Complete? YES; Mean Corpuscular HGB CONC 33.1 g/dL (32.0-36.0); Mean Corpuscular Hemoglobin 32.8 pg (27.0-31.0); Mean Corpuscular Volume 99.1 fL (78.0-98.0); Mean Platelet Volume 7.5 fL (7.4-10.4); Monocytes 1 % (0-10); Neutrophil 73 % (42-75); Platelet Count 196 thou/uL (130-400); RBC Distribution Width 12.2 % (11.5-14.5); Red Blood Cell (RBC) Count 4.43 mill/uL (4.70-6.10); White Blood Cell (WBC) Count 7.4 thou/uL (4.8-10.8)
[2021-11-06] MEDS: diphenhydrAMINE 25 MG CAP PO PRN ×2 (09:31→17:02)
[2021-11-06] MEDS: predniSONE 5 MG TAB PO SCH (09:31)
[2021-11-06] MEDS: Doxycycline 100 MG CAP PO SCH ×2 (09:31→19:44)
[2021-11-06] MEDS: guaiFENesin ER 600 MG TAB PO SCH ×2 (09:31→19:44)
[2021-11-06] MEDS: Enoxaparin Sodium 40 MG/0.4 ML SYRINGE SC SCH (09:31)
[2021-11-06] MEDS ORDERED: Non-Formulary Item 1 EACH (Dulaglutide [Trulicity] 1.5 MG/0.5 ML Pen.Injctr) SC SCH (13:15)
[2021-11-06] MEDS ORDERED: Albuterol Sulfate 2.5 mg/3 ml Neb NEB PRN (13:30)
[2021-11-06] MEDS ORDERED: Milk Of Magnesia 30 ML UDCUP PO PRN (13:32)
[2021-11-06] MEDS: hydrOXYzine Pamoate 25 mg Capsule PO PRN (13:49)
[2021-11-06] MEDS ORDERED: ALPRAZolam 0.25 MG TAB PO SCH (18:30)
[2021-11-06] MEDS: Insulin Glargine 30 UNITS/0.3 ML VIAL SC SCH (19:46)
[2021-11-06] MEDS ORDERED: Atorvastatin Calcium 40 MG TAB PO SCH (21:00)
[2021-11-07] MEDS: hydrOXYzine Pamoate 25 mg Capsule PO PRN (04:44)
[2021-11-07] MEDS: diphenhydrAMINE 25 MG CAP PO PRN (04:49)
[2021-11-07 05:10] LABS: #Eosinphils 0.1 thou/uL (0.0-0.7); #Lymphocytes 2.5 thou/uL (1.20-3.40); #Monocytes 0.4 thou/uL (0.11-0.59); #Neutrophils 2.5 thou/uL (1.40-6.50); %Basophils 0.8 % (0.0-1.0); %Eosinophils 1.9 % (0.0-10.0); %Lymphocytes 45.7 % (21.0-51.0); %Monocytes 7.1 % (0.0-10.0); %Neutrophils 44.6 % (42.0-75.0); Hemoglobin 14.6 g/dL (14.0-18.0); Mean Corpuscular HGB CONC 33.4 g/dL (32.0-36.0); Mean Corpuscular Hemoglobin 33.3 pg (27.0-31.0); Mean Corpuscular Volume 99.7 fL (78.0-98.0); Mean Platelet Volume 7.7 fL (7.4-10.4); Platelet Count 194 thou/uL (130-400); RBC Distribution Width 12.1 % (11.5-14.5); White Blood Cell (WBC) Count 5.5 thou/uL (4.8-10.8)
[2021-11-07 05:36] LABS: Anion Gap 15 mmol/L (10-20); BUN (Urea Nitrogen) 10 mg/dL (8.4-25.7); Calc. Creatinine Clearance 161 mL/min (70-130); Carbon Dioxide 23 mmol/L (23-31); Chloride 105 mmol/L (98-107); Estimated GFR 81; Glucose 177 mg/dL (80-115); Potassium 3.7 mmol/L (3.5-5.1); Sodium 139 mmol/L (136-145)
[2021-11-07] MEDS ORDERED: Levothyroxine Sodium 50 MCG TAB PO SCH (06:00)
[2021-11-07 08:05] VITALS: BP 143/73; TEMP 97.5
[2021-11-07] MEDS: Enoxaparin Sodium 40 MG/0.4 ML SYRINGE SC SCH (08:17)
[2021-11-07] MEDS: Doxycycline 100 MG CAP PO SCH (08:17)
[2021-11-07] MEDS: guaiFENesin ER 600 MG TAB PO SCH (08:17)
[2021-11-07] MEDS: predniSONE 5 MG TAB PO SCH (08:18)
[2021-11-07] MEDS: Insulin Glargine 30 UNITS/0.3 ML VIAL SC SCH (08:19)
[2021-11-07] MEDS ORDERED: Aspirin Chewable 81 MG TAB PO SCH (09:00)
[2021-11-07] MEDS ORDERED: Allopurinol 300 MG TAB PO SCH (09:00)
[2021-11-07] MEDS ORDERED: Metoprolol Tartrate 50 MG TAB PO SCH (09:00)
[2021-11-07] MEDS ORDERED: Losartan 25 MG TAB PO SCH (09:00)
== END 2021-11-07 12:15 | disposition home or self-care (01) ==
LOC: ERS 10:31 → 2SW 13:43
PROVIDERS: ADMIT Internal Medicine; ATTEND Internal Medicine
DX: J20.9 Acute bronchitis, unspecified (principal); R07.9 Chest pain, unspecified; I12.9 Hypertensive chronic kidney disease with stage 1 through stage 4 chronic kidney disease, or unspecified chronic kidney disease; E11.22 Type 2 diabetes mellitus with diabetic chronic kidney disease; N18.2 Chronic kidney disease, stage 2 (mild); E03.9 Hypothyroidism, unspecified; E78.5 Hyperlipidemia, unspecified; R74.01 Elevation of levels of liver transaminase levels; E66.2 Morbid (severe) obesity with alveolar hypoventilation; Z68.43 Body mass index [BMI] 50.0-59.9, adult; Z86.16 Personal history of COVID-19; Z79.4 Long term (current) use of insulin; Z79.82 Long term (current) use of aspirin; Z79.84 Long term (current) use of oral hypoglycemic drugs; Z79.890 Hormone replacement therapy; Z79.899 Other long term (current) drug therapy; Z20.822 Contact with and (suspected) exposure to COVID-19
CPT/HCPCS: 0240U; 71045; 80048 ×2; 80053; 81003; 82962 ×2; 83690; 83735; 83880; 84484 ×2; 85025 ×3; 85379; 87449; 87633; 87899; 93005; 93306; 94640 ×3; 94760; 96372 ×2; G0378 ×4; 36415; 36416; J1650; J1815; J7512; J7620; Q0177

== ENCOUNTER 2021-12-25 00:40 | Inpatient (IN) | payer OTHER ==
[2021-12-25] MEDS ORDERED: Ondansetron PF 4 MG/2 ML Vial ONE (00:52)
[2021-12-25 01:12] LABS: Hemoglobin 15.1 g/dL (14.0-18.0); Mean Corpuscular HGB CONC 34.8 g/dL (32.0-36.0); Mean Corpuscular Hemoglobin 34.3 pg (27.0-31.0); Mean Corpuscular Volume 98.7 fL (78.0-98.0); Mean Platelet Volume 7.5 fL (7.4-10.4); Platelet Count 215 thou/uL (130-400); RBC Distribution Width 13.1 % (11.5-14.5); White Blood Cell (WBC) Count 10.2 thou/uL (4.8-10.8)
[2021-12-25 01:23] LABS: Prothrombin Time 13.2 sec (12.0-14.7)
[2021-12-25 01:29] LABS: Band 2 % (5-11); Lymphocytes 35 % (21-51); MDiff Complete? YES; Monocytes 6 % (0-10); Neutrophil 42 % (42-75); Platelet Morphology Comment Appears Adequate; RBC Morphology Normal; Reactive Lymphocytes 15 % (0-10)
[2021-12-25 01:34] LABS: ALT (SGPT) 51 U/L (8-55); AST (SGOT) 37 U/L (5-34); Albumin 3.9 g/dL (3.4-4.8); Alkaline Phosphatase 64 U/L (40-110); Anion Gap 19 mmol/L (10-20); BUN (Urea Nitrogen) 14 mg/dL (8.4-25.7); Bilirubin, Total 0.4 mg/dL (0.2-1.2); Calc. Creatinine Clearance 0 mL/min (70-130); Calcium 8.8 mg/dL (7.8-10.44); Carbon Dioxide 20 mmol/L (23-31); Chloride 102 mmol/L (98-107); Estimated GFR 78; Globulin 2.8 g/dL (2.4-3.5); Glucose 127 mg/dL (80-115); Potassium 3.2 mmol/L (3.5-5.1); Protein, Total 6.7 g/dL (5.8-8.1); Sodium 138 mmol/L (136-145)
[2021-12-25 01:35] LABS: Acetaminophen Less than 10.0 mcg/mL (10.0-30.0); Alcohol 194 mg/dL (Less than 10); Salicylate Less than 8.0 mg/dL (15.0-30.0)
[2021-12-25 02:21] LABS: SARS-CoV-2 NAA Rapid Test Not Detected (NotDetected)
[2021-12-25] MEDS ORDERED: Multivitamins, Adult 10 ML, Thiamine HCl 100 MG, Folic Acid 1 MG in Dextrose 5 %-0.45 %... IV SCH (02:45)
[2021-12-25] MEDS ORDERED: Acetaminophen 325 MG TAB PO PRN (03:00)
[2021-12-25] MEDS ORDERED: Ondansetron PF 4 MG/2 ML Vial IVP PRN (03:00)
[2021-12-25] MEDS ORDERED: Ondansetron ODT 4 MG TAB SL PRN (03:00)
[2021-12-25] MEDS ORDERED: Dextrose 5% in Water 1,000 ML IV PRN (03:30)
[2021-12-25] MEDS ORDERED: Dextrose 50% Abboject 50 ML SYRINGE SLOW IVP PRN (03:30)
[2021-12-25] MEDS ORDERED: HumaLOG 300 UNITS/3 ML VIAL SC PRN ×2 (03:30)
[2021-12-25] MEDS ORDERED: Acetaminophen 650 MG Suppository PR PRN (03:30)
[2021-12-25 03:33] LABS: Bilirubin Negative (Negative); Blood, Urine Negative (Negative); Clarity Clear (Clear); Glucose, Urine (Dipstick) Normal (Negative); Ketone, Urine Negative (Negative); Leukocyte Negative Leu/uL (Negative); Nitrite Negative (Negative); Protein, Urine (Dipstick) Negative (Neg-Trace); Specific Gravity, Urine 1.012 (1.002-1.036); Urobilinogen Normal mg/dL (Less than 2)
[2021-12-25 03:44] LABS: Amphetamine Not Detected (NotDetected); Barbiturates Screen Not Detected (NotDetected); Benzodiazepine Screen Not Detected (NotDetected); Cocaine Metabolite Screen Not Detected (NotDetected); Methadone Not Detected (NotDetected); Methamphetamine Not Detected (NotDetected); Opiate Screen Not Detected (NotDetected); Oxycodone Screen Not Detected (NotDetected); Phencyclidine (PCP) Not Detected (NotDetected); THC/Cannabinoid Screen Not Detected (NotDetected); Tricyclic Screen Not Detected (NotDetected)
[2021-12-25 04:13] LABS: #Eosinphils 0.1 thou/uL (0.0-0.7); #Lymphocytes 2.7 thou/uL (1.20-3.40); #Monocytes 0.6 thou/uL (0.11-0.59); #Neutrophils 4.9 thou/uL (1.40-6.50); %Basophils 0.4 % (0.0-1.0); %Lymphocytes 32.4 % (21.0-51.0); %Monocytes 6.9 % (0.0-10.0); %Neutrophils 59.3 % (42.0-75.0); Hemoglobin 16.1 g/dL (14.0-18.0); Mean Corpuscular HGB CONC 34.3 g/dL (32.0-36.0); Mean Corpuscular Volume 99.1 fL (78.0-98.0); Mean Platelet Volume 7.5 fL (7.4-10.4); Platelet Count 204 thou/uL (130-400); Red Blood Cell (RBC) Count 4.73 mill/uL (4.70-6.10); White Blood Cell (WBC) Count 8.2 thou/uL (4.8-10.8)
[2021-12-25 04:33] LABS: Anion Gap 17 mmol/L (10-20); BUN (Urea Nitrogen) 14 mg/dL (8.4-25.7); Calc. Creatinine Clearance 0 mL/min (70-130); Carbon Dioxide 22 mmol/L (23-31); Chloride 107 mmol/L (98-107); Estimated GFR 82; Glucose 147 mg/dL (80-115); Potassium 3.3 mmol/L (3.5-5.1); Sodium 143 mmol/L (136-145)
[2021-12-25 04:37] LABS: Troponin I Less than 0.010 ng/mL (< 0.028)
[2021-12-25 04:38] VITALS: BMI 47.7
[2021-12-25] MEDS: Sodium Chloride 0.9% 1,000 ML IV SCH ×2 (04:53→13:26)
[2021-12-25] MEDS ORDERED: Lorazepam 2 MG/ML VIAL IM PRN (06:27)
[2021-12-25] MEDS ORDERED: Lorazepam 1 MG TAB PO PRN (06:27)
[2021-12-25] MEDS ORDERED: Electrolyte Replacement Protocol 1 EACH FS SCH ×2 (06:30)
[2021-12-25] MEDS ORDERED: Lorazepam 1 MG TAB PO SCH (06:30)
[2021-12-25] MEDS ORDERED: Potassium Chloride 20 MEQ TAB PO SCH (06:45)
[2021-12-25 07:21] LABS: Magnesium 1.9 mg/dL (1.6-2.6)
[2021-12-25] MEDS: Multivit, Therapeutic 1 TAB PO SCH (07:38)
[2021-12-25] MEDS: Lorazepam 1 MG TAB PO SCH ×3 (07:38→20:16)
[2021-12-25] MEDS: Thiamine HCl 200 MG/2 ML VIAL SLOW IVP SCH (07:39)
[2021-12-25] MEDS: Folic Acid 1 MG TAB PO SCH (07:39)
[2021-12-25] MEDS: Enoxaparin Sodium 30 MG/0.3 ML SYRINGE SC SCH ×2 (07:40→20:17)
[2021-12-25] MEDS: Enoxaparin Sodium 120 MG/0.8 ML SYRINGE SC SCH ×2 (07:40→20:16)
[2021-12-25 07:44] LABS: Troponin I 0.017 ng/mL (< 0.028)
[2021-12-25] MEDS ORDERED: Magnesium 2 GM/50 ML(in water) 2 GM in Premix Bag 1 BAG IVPB SCH (08:00)
[2021-12-25] MEDS ORDERED: Enoxaparin Sodium 40 MG/0.4 ML SYRINGE SC SCH (09:00)
[2021-12-25] MEDS ORDERED: Iopamidol-370 76% 500 ML 1 ML ONE (09:17)
[2021-12-25] MEDS ORDERED: Diltiazem 125 MG in Sodium Chloride 0.9% 100 ML IVPB SCH (16:00)
[2021-12-25] MEDS ORDERED: Albuterol Sulfate 2.5 mg/3 ml Neb NEB PRN (16:25)
[2021-12-25] MEDS ORDERED: Mometasone 200 MCG/Formoterol 5 MCG 120 PUFF INHALER INH PRN (16:27)
[2021-12-25] MEDS: HYDROcodone/Acetaminophen 5/325 mg Tablet PO PRN (16:45)
[2021-12-25] MEDS: Atorvastatin Calcium 40 MG TAB PO SCH (20:16)
[2021-12-26] MEDS: Lorazepam 1 MG TAB PO SCH ×4 (02:00→20:30)
[2021-12-26] MEDS: Levothyroxine Sodium 50 MCG TAB PO SCH (06:14)
[2021-12-26] MEDS ORDERED: Lorazepam 1 MG TAB PO PRN (06:27)
[2021-12-26 08:06] LABS: #Basophils 0.1 thou/uL (0.0-0.2); #Eosinphils 0.2 thou/uL (0.0-0.7); #Lymphocytes 2.6 thou/uL (1.20-3.40); #Monocytes 0.5 thou/uL (0.11-0.59); %Basophils 0.9 % (0.0-1.0); %Eosinophils 2.4 % (0.0-10.0); %Lymphocytes 40.9 % (21.0-51.0); %Monocytes 8.6 % (0.0-10.0); %Neutrophils 47.2 % (42.0-75.0); Hemoglobin 14.7 g/dL (14.0-18.0); Mean Corpuscular HGB CONC 32.9 g/dL (32.0-36.0); Mean Corpuscular Hemoglobin 32.9 pg (27.0-31.0); Mean Corpuscular Volume 99.9 fL (78.0-98.0); Mean Platelet Volume 7.3 fL (7.4-10.4); Platelet Count 202 thou/uL (130-400); RBC Distribution Width 13.3 % (11.5-14.5); Red Blood Cell (RBC) Count 4.46 mill/uL (4.70-6.10); White Blood Cell (WBC) Count 6.3 thou/uL (4.8-10.8)
[2021-12-26 08:51] LABS: ALT (SGPT) 44 U/L (8-55); AST (SGOT) 25 U/L (5-34); Albumin 3.6 g/dL (3.4-4.8); Alkaline Phosphatase 65 U/L (40-110); Anion Gap 13 mmol/L (10-20); BUN (Urea Nitrogen) 9 mg/dL (8.4-25.7); Bilirubin, Total 0.8 mg/dL (0.2-1.2); Calc. Creatinine Clearance 185 mL/min (70-130); Calcium 8.6 mg/dL (7.8-10.44); Carbon Dioxide 25 mmol/L (23-31); Chloride 106 mmol/L (98-107); Estimated GFR 98; Globulin 2.5 g/dL (2.4-3.5); Glucose 131 mg/dL (80-115); Potassium 3.8 mmol/L (3.5-5.1); Protein, Total 6.1 g/dL (5.8-8.1); Sodium 140 mmol/L (136-145)
[2021-12-26] MEDS ORDERED: Metoprolol Tartrate 50 MG TAB PO SCH (09:00)
[2021-12-26] MEDS: Aspirin Chewable 81 MG TAB PO SCH (09:32)
[2021-12-26] MEDS: Folic Acid 1 MG TAB PO SCH (09:33)
[2021-12-26] MEDS: Multivit, Therapeutic 1 TAB PO SCH (09:33)
[2021-12-26] MEDS: Enoxaparin Sodium 30 MG/0.3 ML SYRINGE SC SCH ×2 (09:33→20:28)
[2021-12-26] MEDS: Thiamine HCl 200 MG/2 ML VIAL SLOW IVP SCH (09:33)
[2021-12-26] MEDS: Enoxaparin Sodium 120 MG/0.8 ML SYRINGE SC SCH ×2 (09:33→20:35)
[2021-12-26] MEDS: Allopurinol 300 MG TAB PO SCH (09:33)
[2021-12-26] MEDS: Atorvastatin Calcium 40 MG TAB PO SCH (20:30)
[2021-12-27] MEDS: Lorazepam 1 MG TAB PO SCH ×2 (01:21→08:17)
[2021-12-27 04:00] LABS: #Eosinphils 0.2 thou/uL (0.0-0.7); #Lymphocytes 2.2 thou/uL (1.20-3.40); #Monocytes 0.4 thou/uL (0.11-0.59); #Neutrophils 2.6 thou/uL (1.40-6.50); %Basophils 0.3 % (0.0-1.0); %Eosinophils 3.1 % (0.0-10.0); %Lymphocytes 41.2 % (21.0-51.0); %Monocytes 7.2 % (0.0-10.0); %Neutrophils 48.3 % (42.0-75.0); Hemoglobin 14.5 g/dL (14.0-18.0); Mean Corpuscular HGB CONC 34.4 g/dL (32.0-36.0); Mean Corpuscular Hemoglobin 34.1 pg (27.0-31.0); Mean Corpuscular Volume 99.1 fL (78.0-98.0); Mean Platelet Volume 7.4 fL (7.4-10.4); Platelet Count 197 thou/uL (130-400); Red Blood Cell (RBC) Count 4.25 mill/uL (4.70-6.10); White Blood Cell (WBC) Count 5.3 thou/uL (4.8-10.8)
[2021-12-27 04:20] LABS: ALT (SGPT) 37 U/L (8-55); AST (SGOT) 24 U/L (5-34); Albumin 3.4 g/dL (3.4-4.8); Alkaline Phosphatase 61 U/L (40-110); Anion Gap 13 mmol/L (10-20); BUN (Urea Nitrogen) 9 mg/dL (8.4-25.7); Bilirubin, Total 0.6 mg/dL (0.2-1.2); Calc. Creatinine Clearance 183 mL/min (70-130); Calcium 8.8 mg/dL (7.8-10.44); Carbon Dioxide 27 mmol/L (23-31); Chloride 104 mmol/L (98-107); Estimated GFR 97; Globulin 2.6 g/dL (2.4-3.5); Glucose 160 mg/dL (80-115); Potassium 4.1 mmol/L (3.5-5.1); Sodium 140 mmol/L (136-145)
[2021-12-27] MEDS: HYDROcodone/Acetaminophen 5/325 mg Tablet PO PRN (04:24)
[2021-12-27] MEDS ORDERED: Lorazepam 1 MG TAB PO PRN (06:27)
[2021-12-27] MEDS: Levothyroxine Sodium 50 MCG TAB PO SCH (06:36)
[2021-12-27] MEDS: Aspirin Chewable 81 MG TAB PO SCH (08:17)
[2021-12-27] MEDS: Allopurinol 300 MG TAB PO SCH (08:17)
[2021-12-27] MEDS: Multivit, Therapeutic 1 TAB PO SCH (08:18)
[2021-12-27] MEDS: Enoxaparin Sodium 30 MG/0.3 ML SYRINGE SC SCH (08:25)
[2021-12-27] MEDS: Thiamine HCl 200 MG/2 ML VIAL SLOW IVP SCH (08:25)
[2021-12-27] MEDS: Folic Acid 1 MG TAB PO SCH (08:26)
[2021-12-27] MEDS: Enoxaparin Sodium 120 MG/0.8 ML SYRINGE SC SCH (08:26)
[2021-12-27] MEDS ORDERED: Regadenoson 0.4 MG/5 ML SYRINGE ONE (08:55)
[2021-12-27 11:52] VITALS: TEMP 96.9
[2021-12-27] MEDS ORDERED: Losartan 25 MG TAB PO SCH (12:57)
[2021-12-27] MEDS ORDERED: Lorazepam 0.5 MG TAB PO SCH (14:00)
[2021-12-28] MEDS ORDERED: Lorazepam 0.5 MG TAB PO PRN (06:27)
[2021-12-28] MEDS ORDERED: Thiamine 100 MG TAB PO SCH (09:00)
[2021-12-28] MEDS ORDERED: Losartan 25 MG TAB PO SCH (09:00)
== END 2021-12-27 14:05 | disposition home or self-care (01) | DRG 312 ==
LOC: ERS 00:40 → IMCU/EMU 02:52
PROVIDERS: ADMIT Student in an Organized Health Care Education/Training Program; ATTEND Internal Medicine
PROC: HZ2ZZZZ Detoxification Services for Substance Abuse Treatment (ICD-10-PCS; principal; 2021-12-25)
DX: R55 Syncope and collapse (principal); Z68.42 Body mass index [BMI] 45.0-49.9, adult; I48.0 Paroxysmal atrial fibrillation; E11.9 Type 2 diabetes mellitus without complications; I10 Essential (primary) hypertension; E03.9 Hypothyroidism, unspecified; E66.01 Morbid (severe) obesity due to excess calories; E87.6 Hypokalemia; F41.9 Anxiety disorder, unspecified; G47.33 Obstructive sleep apnea (adult) (pediatric); F10.10 Alcohol abuse, uncomplicated; J45.20 Mild intermittent asthma, uncomplicated; Z20.822 Contact with and (suspected) exposure to COVID-19; Z79.899 Other long term (current) drug therapy; Z98.890 Other specified postprocedural states; Z79.82 Long term (current) use of aspirin; Z99.81 Dependence on supplemental oxygen; Z91.19 Patient's noncompliance with other medical treatment and regimen; Z86.16 Personal history of COVID-19; Z79.890 Hormone replacement therapy
CPT/HCPCS: 36415; 36416; 71045; 71275; 78452; 80053; 80306; 80307; 81003; 83735; 83880; 84443; 84484; 85025; 85610; 85730; 93005; 93017; 94760; A9500; J1650; J2405; J2785; J3411; J3475; J7042; J7050; Q9967; U0002

== ENCOUNTER 2022-02-15 04:24 | Emergency (ER) | payer MEDICARE, OTHER ==
[2022-02-15 05:57] LABS: #Eosinphils 0.3 thou/uL (0.0-0.7); #Monocytes 0.5 thou/uL (0.11-0.59); #Neutrophils 3.1 thou/uL (1.40-6.50); %Basophils 0.6 % (0.0-1.0); %Eosinophils 4.6 % (0.0-10.0); %Lymphocytes 42.8 % (21.0-51.0); %Monocytes 7.5 % (0.0-10.0); %Neutrophils 44.5 % (42.0-75.0); Hemoglobin 16.3 g/dL (14.0-18.0); Mean Corpuscular HGB CONC 33.4 g/dL (32.0-36.0); Mean Corpuscular Hemoglobin 32.7 pg (27.0-31.0); Mean Platelet Volume 7.5 fL (7.4-10.4); Platelet Count 230 thou/uL (130-400); RBC Distribution Width 12.6 % (11.5-14.5); Red Blood Cell (RBC) Count 4.98 mill/uL (4.70-6.10)
[2022-02-15 06:17] LABS: ALT (SGPT) 34 U/L (8-55); AST (SGOT) 31 U/L (5-34); Albumin 4.1 g/dL (3.4-4.8); Alkaline Phosphatase 80 U/L (40-110); Anion Gap 12 mmol/L (10-20); BUN (Urea Nitrogen) 20 mg/dL (8.4-25.7); Bilirubin, Total 0.6 mg/dL (0.2-1.2); Calc. Creatinine Clearance 0 mL/min (70-130); Calcium 9.6 mg/dL (7.8-10.44); Carbon Dioxide 29 mmol/L (23-31); Chloride 101 mmol/L (98-107); Estimated GFR 65; Globulin 3.3 g/dL (2.4-3.5); Glucose 150 mg/dL (80-115); Potassium 3.9 mmol/L (3.5-5.1); Protein, Total 7.4 g/dL (5.8-8.1); Sodium 138 mmol/L (136-145)
[2022-02-15] MEDS ORDERED: Ketorolac Tromethamine 30 MG/ML VIAL ONE (06:17)
[2022-02-15 08:53] LABS: Bilirubin Negative (Negative); Blood, Urine Negative (Negative); Clarity Clear (Clear); Glucose, Urine (Dipstick) Normal (Negative); Ketone, Urine Negative (Negative); Leukocyte Negative Leu/uL (Negative); Nitrite Negative (Negative); Protein, Urine (Dipstick) Negative (Neg-Trace); Specific Gravity, Urine 1.018 (1.002-1.036); Urobilinogen Normal mg/dL (Less than 2)
[2022-02-15] MEDS ORDERED: Iopamidol 370 76% 50 ML VIAL FS ONE (09:26)
== END 2022-02-15 09:40 | disposition home or self-care (01) ==
LOC: ERS 04:24
DX: R10.9 Unspecified abdominal pain (principal); I10 Essential (primary) hypertension; E11.9 Type 2 diabetes mellitus without complications; E03.9 Hypothyroidism, unspecified; Z79.899 Other long term (current) drug therapy
CPT/HCPCS: 36415; 74177; 80053; 81003; 83690; 85025; 96361; 96374; J1885; Q9967